=== PATIENT | female | born 1965 | race American Indian/Alaskan Native ===

== ENCOUNTER 2018-05-27 12:25 | Outpatient (CLI) | payer OTHER ==
--- NOTE | 2018-05-27 15:02 | Magnetic Resonance Report ---
MRI UPPER EXTREMITY JOINT RIGHT WITHOUT CONTRAST HISTORY: Right forearm mass. TECHNIQUE: Multisequence, multiplanar MRI was performed through the shoulder and proximal right humerus. No IV gadolinium was administered. Findings: No comparison. A marker is placed in the lateral right upper extremity near the level of the right humeral neck. Underlying this marker there is normal appearing subcutaneous and muscular soft tissues. There is no evidence for suspicious mass or fluid collection. This may represent a lipoma although it is not clearly delineated on noncontrast MRI. There is normal bone marrow signal in the visualized right humerus and scapula. No adenopathy is identified. IMPRESSION: No suspicious mass is identified in the right upper extremity. Lipoma?
== END 2018-05-27 12:26 | disposition home or self-care (01) ==
LOC: MRI 12:25
PROVIDERS: ATTEND Surgery
DX: R22.31 Localized swelling, mass and lump, right upper limb (principal)

== ENCOUNTER 2018-06-07 07:54 | Day surgery (SDC) | payer OTHER ==
[~2018-06-07 07:54] MED LIST: ANCEF/STERILE WATER 2 GM/20 ML 2 GM/20 ML SYRINGE IV SCH
[2018-06-07] MEDS ORDERED: LACTATED RINGERS 1,000 ML ONE (08:15)
--- NOTE | 2018-06-07 08:18 | Anesthesia Day of Surgery ---
Anesthesia Day of Surgery - Day of Surgery Patient Examined: Yes Patient H&P Reviewed: Yes Patient is NPO: Yes Beta Blockers: Yes
--- NOTE | 2018-06-07 08:19 | Anesthesia Consultation ---
Anesthesia Consult and Med Hx Date of service: 06/07/18 - Airway Anesthetic Teeth Evaluation: Chipped ROM Head & Neck: Adequate Mental/Hyoid Distance: Adequate Mallampati Class: Class II Intubation Access Assessment: Good - Pre-Operative Health Status ASA Pre-Surgery Classification: ASA2 Proposed Anesthetic Plan: General - Pulmonary Hx Smoking: Yes (FROM AGE 26, 4-5 CIGS/DAY; STOPPED 05/30/18) - Cardiovascular System Hx Hypertension: Yes (2014) Hx Coronary Artery Disease: No (ETT 7 years ago-ok per pt. States she can climb 2 flights of stairs) - Central Nervous System Hx Psychiatric Problems: No - Other Systems Hx Alcohol Use: Yes ([facility]) Hx Substance Use: Yes Hx Cancer: No
[2018-06-07] MEDS ORDERED: ZOFRAN IV PRN (08:20)
[2018-06-07] MEDS ORDERED: SUBLIMAZE IV PRN (08:20)
[2018-06-07] MEDS ORDERED: DILAUDID IV PRN (08:20)
[2018-06-07] MEDS ORDERED: MARCAINE-EPI 0.5%-1:200,000 INFILTRATI ONE ×2 (08:59→09:01)
[2018-06-07] MEDS ORDERED: LACTATED RINGERS 1,000 ML IV SCH (09:00)
[2018-06-07] MEDS ORDERED: VERSED IV NR (09:00)
[2018-06-07] MEDS ORDERED: NEURONTIN PO NR (09:00)
[2018-06-07] MEDS ORDERED: NACL 0.9% IR ONE (09:01)
[2018-06-07] MEDS ORDERED: SUBLIMAZE ONE (09:02)
[2018-06-07] MEDS ORDERED: DIPRIVAN 10 MG/ML IV ONE (09:03)
[2018-06-07] MEDS ORDERED: TYLENOL PO ONE (09:30)
[2018-06-07] MEDS ORDERED: ZOFRAN ONE (09:58)
[2018-06-07] MEDS ORDERED: XYLOCAINE MPF 2% ONE (09:58)
[2018-06-07] MEDS ORDERED: ceFAZolin 2 GM in NACL 0.9% 100 ML IV ONE (10:00)
--- NOTE | 2018-06-07 10:03 | Discharge Summary ---
Short Stay Discharge Plan Activity: other (june d/c when stable. reg diet. empty drain q 8 hrs. record drainage.) Weight Bearing Status: Partial Weight Bearing (no lifting over 5 lbs with R arm) Diet: regular Wound: keep clean and dry Additional Instructions: aleve I po q 6-8 hrs prn for breakthrough pain Follow up with: CHINTAN THOMPSON MD [Staff Physician] - 06/09/18
--- NOTE | 2018-06-07 11:02 | Operative Report ---
PREOPERATIVE DIAGNOSIS: Large subcutaneous mass of right arm near the area of the deltoid region. POSTOPERATIVE DIAGNOSIS: Large lipomatous type mass extending down to, but not including the muscle fascia. PROCEDURE: Excision of aforementioned mass in its entirety. SURGEON: Kelvin Palacio MD ANESTHESIA: General with IV sedation. DRAINS: One 19 Derek drain left in. COMPLICATIONS: No complications. DESCRIPTION OF PROCEDURE: The patient was taken to the operating room, prepped and draped in usual sterile fashion. The palpable mass had been outlined with a marking pencil. A 0.5% Marcaine was infiltrated over the area to be incised. A 15 blade was used to incise the skin and subcutaneous tissue. Dissection was then carried down to the lipomatous type mass. The mass itself was ill-defined and contained no true capsule. The mass, however, was able to be differentiated from the surrounding subcutaneous tissues. A sharp and blunt dissection as well as electrocautery dissection was carried to just above the muscle fascia where a plane was able to be delineated. The entire mass was removed en bloc. The specimen was sent to pathology. The area was irrigated copiously and dried. I checked for hemostasis and noted to be dry. A 19 Derek was left draining the cavity. The drain was brought out through a separate stab incision and secured to the skin with a 2-0 silk suture. The subcutaneous tissue was then closed with interrupted 3-0 Vicryl suture. The skin was closed with interrupted 4-0 Prolene. Fluffs and pressure dressings applied. The patient tolerated the procedure well and left the OR in stable condition. JOB# [id number] DANIEL/ALICIA
[2018-06-07 11:38] VITALS: BP 138/87
--- NOTE | 2018-06-07 15:04 | Post Anesthesia Evaluation ---
- Post Anesthesia Evaluation Patient Participated: Yes Airway Patent: Yes Stable Respiratory Function: Yes Nausea/Vomiting: No Temp > 96.8F: Yes Pain Manageable: Yes Adequeate Hydration: Yes Anesthesia Complications: No Patient on Ventilator: No
== END 2018-06-07 11:30 | disposition home or self-care (01) ==
LOC: OR 07:54
PROVIDERS: ATTEND Surgery
DX: D17.21 Benign lipomatous neoplasm of skin and subcutaneous tissue of right arm (principal); I10 Essential (primary) hypertension; F17.210 Nicotine dependence, cigarettes, uncomplicated; Z72.89 Other problems related to lifestyle; Z98.890 Other specified postprocedural states; Z80.8 Family history of malignant neoplasm of other organs or systems; Z79.899 Other long term (current) drug therapy; Z79.84 Long term (current) use of oral hypoglycemic drugs
CPT/HCPCS: 24071; 82962; 88304; J0690; J2250; J2405; J2704; J3010; J7120; 88307